=== PATIENT | male | born 1980 | race Caucasian/White ===

== ENCOUNTER 2021-10-07 21:09 | Emergency (ER) | payer SELFPAY ==
--- NOTE | 2021-10-07 | ECG_ITS ---
Test Reason : syancope Blood Pressure : / mmHG Vent. Rate : 089 BPM Atrial Rate : 089 BPM P-R Int : 144 ms QRS Dur : 100 ms QT Int : 360 ms P-R-T Axes : 014 043 054 degrees QTc Int : 438 ms Normal sinus rhythm Incomplete right bundle branch block Borderline ECG No previous ECGs available Referred By: Generic ED Physician Electronically Signed By:Silvano Durham
--- NOTE | ~2021-10-07 | XR_ITS ---
EXAMINATION: XR KNEE, RIGHT CLINICAL INFORMATION: Swelling and pain. COMPARISON: None TECHNIQUE: Four views of the right knee. FINDINGS: Moderate volume joint effusion. No fracture. No dislocation. No focal bone lesion. Joint spaces are maintained. XR/XR knee RT 2V IMPRESSION: Moderate volume joint effusion. No acute osseous abnormality.
[2021-10-07 21:26] VITALS: BP 140/80; PULSE 96; RESP 18; TEMP 37.1; O2SAT 99; BMI 26.9
[2021-10-07 22:00] LABS: MANUAL DIFF FLAG NO
[2021-10-07 22:01] LABS: Glucose, Whole Blood 109 mg/dL (60-115)
[2021-10-07 22:02] LABS: Basophils Absolute Auto 0.1 X10*3/uL (0.0-0.2); Basophils Percent Auto 0.4 % (0-2); Eosinophils Absolute Auto 0.1 X10*3/uL (0.0-0.4); Eosinophils Percent Auto 0.7 % (0-4); Hematocrit 42.6 % (42.0-52.0); Hemoglobin 14.4 g/dl (14.0-18.0); Imm Gran Abs Auto 0.05 X10*3/uL (0.00-0.03); Imm Gran Pct Auto 0.4 % (0.0-0.4); Lymphocytes Absolute Auto 1.5 X10*3/uL (1.2-4.9); Lymphocytes Percent Auto 12.7 % (20-40); Mean Corpuscular HGB Conc 33.8 g/dl (31.0-36.0); Mean Corpuscular Hemoglobin 31.1 pg (27.0-33.0); Mean Platelet Volume 10.4 fL (9.4-12.4); Monocytes Absolute Auto 0.7 X10*3/uL (0.1-1.2); Monocytes Percent Auto 5.7 % (2-11); Neutrophils Absolute Auto 9.2 x10*3/uL (2.0-8.3); Neutrophils Percent Auto 80.1 % (45-73); Platelet Count 293 X10*3/uL (160-400); Red Blood Count 4.63 X10*6/uL (4.60-5.80); Red Cell Distribution Width 11.4 % (11.0-16.0); White Blood Count 11.5 X10*3/uL (4.8-10.8)
[2021-10-07 22:20] LABS: Ethanol < 10 mg/dL
[2021-10-07 22:26] LABS: Alanine Aminotransferase 20 U/L (0-40); Alkaline Phosphatase 75 U/L (39-117); Anion Gap 14 (12-20); Aspartate Amino Transferase 17 U/L (5-37); Bilirubin Total 0.4 mg/dL (0.0-1.0); Blood Urea Nitrogen 10 mg/dL (9-16); Calcium 9.2 mg/dL (8.4-10.2); Carbon Dioxide 23 mmol/L (22-29); Chloride 104 mmol/L (96-108); Creatinine Clr Calc Pharmacy 96.8; Estimated Glomerular Filt Rate > 60; Glucose Random 109 mg/dL (60-115); Potassium 4.2 mmol/L (3.3-5.1); Sodium 137 mmol/L (135-145); Total Protein 7.3 g/dL (6.5-8.0); Troponin-I High Sensitivity < 3.5 ng/L (<3.5-35.0)
[2021-10-08 03:19] VITALS: O2SAT 100
[2021-10-08 03:21] VITALS: BP 135/85; PULSE 91; RESP 18; TEMP 37.1; O2SAT 99
[2021-10-08 05:04] VITALS: PULSE 92; RESP 15; O2SAT 99
--- NOTE | 2021-10-08 05:04 | PC.NURSE ---
pt resting in bed in no distress, girlfriend at bedside
--- NOTE | 2021-10-08 06:18 | ED_ITS ---
HPI - General Adult General Chief complaint: Syncope Stated complaint: R leg pain Time Seen by Provider: 10/08/21 06:16 Source: patient and other Mode of arrival: ambulatory History of Present Illness HPI narrative: 41-year-old male without significant past medical history other than some IBS symptoms presents here for right foot pain that started approximately 1 week ago associated with some swelling and decreased range of motion due to associated pain but no redness and no fevers or chills. Patient then states that the pain radiated up into the leg with associated knee swelling and again without any redness or fevers/chills. He was reported to be diaphoretic and clammy with nausea and vomiting, and had passed out in the waiting room but currently states that he feels well. Patient denies any recent insect bites or injuries or skin breaks that he can recall but does state that approximately 18 years ago he did have a tick to the right upper thigh. Related Data Previous Rx's Medication Instructions Recorded ketorolac 10 mg tablet 10 mg PO Q6H PRN 5 Days #20 tab 10/08/21 prednisone 10 mg tablet 10 mg PO DAILY 5 Days #5 tab 10/08/21 Allergies Allergy/AdvReac Type Severity Reaction Status Date / Time lactose AdvReac Flatulence Verified 10/07/21 21:36 Review of Systems 2 Review of Systems: Pertinent positives and negatives as stated in HPI 10 point review of systems is otherwise negative. PMFSH Past Medical History Source: nursing notes reviewed Medical History No known health problems Social History Social History Advance Directives: No Advance Directives Information Provided: No Physical Exam ED Vital Signs: Vital Signs - 24 hr 10/07/21 21:26 10/08/21 03:19 10/08/21 03:21 Temperature 98.8 F 98.8 F Pulse Rate 96 91 Respiratory Rate 18 18 Blood Pressure 140/80 H 135/85 Pulse Oximetry 99 100 99 10/08/21 05:04 10/08/21 07:00 Temperature Pulse Rate 92 90 Respiratory Rate 15 15 Blood Pressure 131/91 H Pulse Oximetry 99 98 BMI result Body Mass Index 26.9 VITAL SIGNS: Reviewed. GENERAL: Well developed, well nourished, in no acute distress. HEAD: Normocephalic/atraumatic EYES: PERRLA, EOMI EARS: Ext canals without abnormality OROPHARYNX: no oral lesions noted, posterior pharynx clear and non-erythematous without noted tonsillar enlargement/erythema/exudates NECK: Supple, no adenopathy LUNGS: Normal breath sounds. No adventitious sounds or accessory muscle use. SpO2<99> CARDIOVASCULAR: Regular rate and rhythm without noted murmurs ABDOMEN: Soft, non-tender, non-distended with bowel sounds. MUSCULOSKELETAL: No tenderness, deformities, but effusion noted to right knee/right ankle without erythema or induration. EXTREMITIES: No cyanosis, clubbing; RIGHT LOWER EXTREMITY: There is noted swelling at the joint without surrounding redness or induration therefore not supporting infection, limited range of motion due to pain and discomfort SKIN: Inspection of the skin reveals no rashes, petechiae NEUROLOGIC: Alert and oriented x 4. Strength and sensation to light touch were grossly intact x 4. Course Course Course Narrative: 41-year-old male with history and clinical presentation of inexplicable multiple joint swelling without evidence to suggest cellulitis, no associated insect bites noted or skin breaks. Patient likely had vasovagal episode while in the waiting room secondary to pain and discomfort. Review of all investigations does demonstrate a very mild leukocytosis, elevated CRP and rheumatoid factor but otherwise lab work is within normal limits. Medical Decision Making Lab Data Result diagrams: 10/07/21 21:56 10/07/21 21:56 Labs: Lab Results 10/07/21 10/07/21 10/07/21 Range/Units 21:27 21:56 21:56 WBC 11.5 H (4.8-10.8) X10*3/uL RBC 4.63 (4.60-5.80) X10*6/uL Hgb 14.4 (14.0-18.0) g/dl Hct 42.6 (42.0-52.0) % MCV 92.0 (80.0-98.0) fL MCH 31.1 (27.0-33.0) pg MCHC 33.8 (31.0-36.0) g/dl RDW 11.4 (11.0-16.0) % Plt Count 293 (160-400) X10*3/uL MPV 10.4 (9.4-12.4) fL Immature Gran % (Auto) 0.4 (0.0-0.4) % Neut % (Auto) 80.1 H (45-73) % Lymph % (Auto) 12.7 L (20-40) % Weakley % (Auto) 5.7 (2-11) % Eos % (Auto) 0.7 (0-4) % Baso % (Auto) 0.4 (0-2) % Lymph # (Auto) 1.5 (1.2-4.9) X10*3/uL Weakley # (Auto) 0.7 (0.1-1.2) X10*3/uL Eos # (Auto) 0.1 (0.0-0.4) X10*3/uL Baso # (Auto) 0.1 (0.0-0.2) X10*3/uL Abs Immat Gran (auto) 0.05 H (0.00-0.03) X10*3/uL Absolute Neuts (auto) 9.2 H (2.0-8.3) x10*3/uL Absolute Nucleated RBC 0.000 (0.0-0.012) X10*3/uL Nucleated RBC % (auto) 0.0 (0.0-0.2) /100WBC Sodium 137 (135-145) mmol/L Potassium 4.2 (3.3-5.1) mmol/L Chloride 104 (96-108) mmol/L Carbon Dioxide 23 (22-29) mmol/L Anion Gap 14 (12-20) BUN 10 (9-16) mg/dL Creatinine 1.19 (0.5-1.4) mg/dL Estim Creat Clear Calc 96.8 Estimated GFR > 60 POC Glucose 109 (60-115) mg/dL Random Glucose 109 (60-115) mg/dL Calcium 9.2 (8.4-10.2) mg/dL Total Bilirubin 0.4 (0.0-1.0) mg/dL AST 17 (5-37) U/L ALT 20 (0-40) U/L Alkaline Phosphatase 75 (39-117) U/L Troponin I High Sens (<3.5-35.0) ng/L C-Reactive Protein 3.04 H (< or = 0.50) mg/dL Total Protein 7.3 (6.5-8.0) g/dL Albumin 4.0 (3.5-5.0) g/dL Ethyl Alcohol mg/dL Rheumatoid Factor 21.4 H (<15.0) IU/mL 10/07/21 10/07/21 10/08/21 Range/Units 21:56 21:56 07:14 WBC (4.8-10.8) X10*3/uL RBC (4.60-5.80) X10*6/uL Hgb (14.0-18.0) g/dl Hct (42.0-52.0) % MCV (80.0-98.0) fL MCH (27.0-33.0) pg MCHC (31.0-36.0) g/dl RDW (11.0-16.0) % Plt Count (160-400) X10*3/uL MPV (9.4-12.4) fL Immature Gran % (Auto) (0.0-0.4) % Neut % (Auto) (45-73) % Lymph % (Auto) (20-40) % Weakley % (Auto) (2-11) % Eos % (Auto) (0-4) % Baso % (Auto) (0-2) % Lymph # (Auto) (1.2-4.9) X10*3/uL Weakley # (Auto) (0.1-1.2) X10*3/uL Eos # (Auto) (0.0-0.4) X10*3/uL Baso # (Auto) (0.0-0.2) X10*3/uL Abs Immat Gran (auto) (0.00-0.03) X10*3/uL Absolute Neuts (auto) (2.0-8.3) x10*3/uL Absolute Nucleated RBC (0.0-0.012) X10*3/uL Nucleated RBC % (auto) (0.0-0.2) /100WBC Sodium (135-145) mmol/L Potassium (3.3-5.1) mmol/L Chloride (96-108) mmol/L Carbon Dioxide (22-29) mmol/L Anion Gap (12-20) BUN (9-16) mg/dL Creatinine (0.5-1.4) mg/dL Estim Creat Clear Calc Estimated GFR POC Glucose 89 (60-115) mg/dL Random Glucose (60-115) mg/dL Calcium (8.4-10.2) mg/dL Total Bilirubin (0.0-1.0) mg/dL AST (5-37) U/L ALT (0-40) U/L Alkaline Phosphatase (39-117) U/L Troponin I High Sens < 3.5 (<3.5-35.0) ng/L C-Reactive Protein (< or = 0.50) mg/dL Total Protein (6.5-8.0) g/dL Albumin (3.5-5.0) g/dL Ethyl Alcohol < 10 mg/dL Rheumatoid Factor (<15.0) IU/mL ECG Data Attestation: I personally reviewed and interpreted this ECG as follows: Prior ECG tracings: not available for review Interpretation: Normal sinus rhythm, incomplete right bundle branch block, HR-89, no STEMI, OH/QRS/QTC are within normal limits. Discharge Plan Discharge Clinical Impression: Effusion of multiple joints, Vasovagal syncope Patient Disposition: Home, Self-Care Instructions: Crutch Instructions (ED), Swollen Knee Joint (ED), Swollen Ankle Joint (ED) Additional Instructions: 1. Tylenol 1000 mg, orally, every 6 hours as needed for pain control. Do not exceed 4000 mg within 24 hours. 2. You have been placed on 5 days of low-dose steroids which will increase your blood pressure, acid production. 3. Please identify and set up an appointment with a primary care provider at your earliest convenience. Do not hesitate to return to the emergency room should you experience any worsening of your symptoms or develops any fevers or chills. Prescriptions: New prednisone 10 mg tablet 10 mg PO DAILY 5 Days Qty: 5 0RF ketorolac 10 mg tablet 10 mg PO Q6H PRN (Reason: pain) 5 Days Qty: 20 0RF Rx Instructions: Patient received Toradol in the emergency room. Referrals: Yuniel Ramirez MD [Physician] -
[2021-10-08 06:34] LABS: C Reactive Protein 3.04 mg/dL (< or = 0.50); Rheumatoid Factor 21.4 IU/mL (<15.0)
[2021-10-08 07:00] VITALS: BP 131/91; PULSE 90; RESP 15; O2SAT 98
[2021-10-08] MEDS: Acetaminophen 325 MG TABLET 975 MG PO (07:02)
[2021-10-08] MEDS: predniSONE 10 MG TABLET PO (07:02)
[2021-10-08] MEDS: Ketorolac Tromethamine 15 MG/ML VIAL IM (07:02)
[2021-10-08 07:18] LABS: Glucose, Whole Blood 89 mg/dL (60-115)
[2021-10-08 08:06] LABS: Erythrocyte Sedimentation Rate 40 MM/HR (0-15)
[2021-10-11 21:07] LABS: Lyme Abs Screen <0.90 index
== END 2021-10-08 07:45 | disposition home or self-care (01) ==
PROVIDERS: Emergency Provider Student in an Organized Health Care Education/Training Program
DX: R55 Syncope and collapse (principal); M79.604 Pain in right leg; Z79.899 Other long term (current) drug therapy
CPT/HCPCS: 36415; 73560; 80053; 82077; 82947; 84484; 85025; 85652; 86140; 86431; 86617; 86618; 93005; 96372; 99284; J1885